=== PATIENT | male | born 1995 | race Caucasian/White ===

== ENCOUNTER 2017-03-15 22:45 | Emergency (ER) | payer OTHER ==
[~2017-03-15 22:45] MED LIST: Z.0.NO CURRENT MEDS
[2017-03-15 22:49] VITALS: BP 115/60; PULSE 103; RESP 16; TEMP 99.2; O2SAT 99
[2017-03-16] MEDS ORDERED: LIDOCAINE 1%/EPINEPHrine 1:100,000 SOLN 20 ML VIAL INFIL ONE (00:15)
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
[2017-03-16 00:57] VITALS: BP 122/63
== END 2017-03-16 00:58 | disposition home or self-care (01) ==
LOC: NEPD 22:45
DX: S41.112A Laceration without foreign body of left upper arm, initial encounter (principal); X99.8XXA Assault by other sharp object, initial encounter; Y93.01 Activity, walking, marching and hiking
CPT/HCPCS: 12005

== ENCOUNTER 2017-07-14 21:18 | Inpatient (IN) | payer OTHER ==
[~2017-07-14] VITALS: Ht 180.3 cm; Wt 69.1 kg
[2017-07-14] MEDS ORDERED: ALUMINUM/MAGNESIUM/SIMETH 30 ML CUP PO PRN (23:45)
[2017-07-14] MEDS ORDERED: MAGNESIUM HYDROXIDE SUSP 30 ML CUP PO PRN (23:45)
[2017-07-14 23:47] VITALS: BP 152/78; PULSE 74; RESP 18; TEMP 98.3
[2017-07-15 06:20] VITALS: BP 148/65; PULSE 73; RESP 18; TEMP 97.1; O2SAT 98
[2017-07-15 07:01] LABS: AUTOMATED NEUTROPHIL # 5.7 TH/MM3 (1.8-7.7); BASOPHIL % 0.6 % (0.0-2.0); EOSINOPHIL # 0.3 TH/MM3 (0-0.4); HEMATOCRIT 45.1 % (39.0-51.0); HEMO FLAGS DIFF FINAL; LYMPH % 20.3 % (9.0-44.0); LYMPHOCYTE # 1.7 TH/MM3 (1.0-4.8); MEAN CELL VOLUME 94.2 FL (80.0-100.0); MEAN CORPUSCULAR HEMOGLOBIN 32.9 PG (27.0-34.0); MONO % 7.3 % (0.0-8.0); NEUT % 67.8 % (16.0-70.0); PLATELET COUNT 227 TH/MM3 (150-450); RED BLOOD COUNT 4.78 MIL/MM3 (4.50-5.90); RED CELL DISTRIBUTION WIDTH 12.5 % (11.6-17.2); WHITE BLOOD COUNT 8.4 TH/MM3 (4.0-11.0)
[2017-07-15 07:37] LABS: ANION GAP 8 MEQ/L (5-15); AST (GOT) 26 U/L (15-37); BICARBONATE 26.5 MEQ/L (21.0-32.0); BLOOD UREA NITROGEN 19 MG/DL (7-18); CHLORIDE 106 MEQ/L (98-107); GLOMERULAR FILTRATION RATE 127 ML/MIN (>89); SODIUM (NA) 140 MEQ/L (136-145)
[2017-07-15 07:42] LABS: ALKALINE PHOSPHATASE 65 U/L (45-117); ALT (GPT) 32 U/L (12-78); HDL CHOLESTEROL 39.7 MG/DL (40.0-60.0); LDL CHOLESTEROL 92 MG/DL (0-99); TOTAL BILIRUBIN ADULT 0.3 MG/DL (0.2-1.0)
[2017-07-15 07:45] LABS: CREATINE KINASE 62 U/L (39-308)
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
[2017-07-15] MEDS: NICOTINE 21 MG/24 HR PATCH T-DERMAL SCH (10:56)
[2017-07-15] MEDS: LISINOPRIL 10 MG TAB PO SCH (10:56)
[2017-07-15] MEDS: buPROPion HCL 75 MG TAB PO ONE ×2 (10:58→11:44)
[2017-07-15 12:14] LABS: HEMOGLOBIN A1a 1.2 %; HEMOGLOBIN A1b 0.7 %; HEMOGLOBIN Ao 84.9 %; HEMOGLOBIN F 1.2 %; HEMOGLOBIN LA1C 2.2 %; HEMOGLOBIN P3 3.8 %
[2017-07-15 18:00] VITALS: BP 150/67; PULSE 66; RESP 18; TEMP 98.1; O2SAT 98
[2017-07-15] MEDS: REMOVE OLD NICOTINE PATCH T-DERMAL SCH (21:00)
[2017-07-16 06:44] VITALS: BP 127/56; PULSE 60; RESP 16; TEMP 97.5; O2SAT 96
[2017-07-16] MEDS: LISINOPRIL 10 MG TAB PO SCH (09:20)
[2017-07-16] MEDS: buPROPion HCL 150 MG SUSTAINED RELEASE TAB PO SCH (09:21)
[2017-07-16] MEDS: NICOTINE 21 MG/24 HR PATCH T-DERMAL SCH (09:21)
--- NOTE | 2017-07-16 13:27 | HHI.PYPN ---
Subjective Chief Complaint: recent suicide attempt via overdose Remarks Patient seen for follow-up, chart reviewed. Discussion with nursing staff reported that patient has been cooperative and compliant with treatment. Patient found sitting in hospital bed eating breakfast was able to interview with check writer salesperson and nurse today. Patient states that he has been feeling "good", reports having gone to groups yesterday stated that he usually is not an indoor person and would like to continue to participate in activities. Patient states having slept well last night, his mood at this time is good stating that this happy yesterday after be visited by his mother who told him that his name was cleared from the alleged rumor. Patient states that his depressions still present although it's better today especially after hearing this news yesterday. Patient this time denies any suicidal ideations. Mental Status Examination Appearance: Appropriate Consciousness: Alert Orientation: Person, Place, Date/Time Motor Activity: Normal gait Speech: Unremarkable Language: Adequate Fund of Knowledge: Inadequate Attention and Concentration: Adequate Memory: Impaired Mood: Sad Affect: Sad Thought Process & Associations: Logical, Linear Thought Content: Appropriate Hallucination Type: None Delusion Type: None Suicidal Ideation: Yes (denies today) Suicidal Plan: Yes Suicidal Intention: Yes Homicidal Ideation: No Homicidal Plan: No Homicidal Intention: No Insight: Fair Judgment: Impulsive Results Vitals/IOs Vital Signs Date Time Temp Pulse Resp B/P (MAP) Pulse Ox O2 Delivery O2 Flow Rate FiO2 07/16/17 06:44 97.5 60 16 127/56 (79) 96 Intake and Output 07/16/17 07/16/17 07/17/17 08:00 16:00 00:00 Intake Total 480 ml 360 ml Balance 480 ml 360 ml Assessment & Plan Problem List: (1) Adjustment disorder with depressed mood ICD Codes: F43.21 - Adjustment disorder with depressed mood Assessment & Plan Patient at this time continues to have depressed mood although her denying any suicidal ideations. Patient continues to be noted to be dysphoric, poor eye contact, but is compliant with treatment and is attempting to attend and participate in groups and activities. Patient appears motivated for improvement but continues to feel depressed due to his current circumstances. Patient had increase in Wellbutrin to 150 mg by mouth daily today and will continue this dose for now and monitor improvement of depressive symptoms. Continue to encourage patient to maintain personal hygiene is patient noted to be slightly malodorous and disheveled. Continue to encourage patient to participate in groups and activities. Discharge planning in progress Justification for Cont. Inpt. At risk for further decompensation if at lower level of care Discharge Planning Patient possibly able to return to mother's residence once psychiatrically stable Jordy Bazzi MD Jul 16, 2017 13:27
--- NOTE | 2017-07-16 14:47 | HHI.PR ---
Subjective Remarks Nursing denies any deterioration since last night. Stable blood pressures. Patient self denies any chest pain nausea vomiting. Objective Vital Signs Date Time Temp Pulse Resp B/P (MAP) Pulse Ox O2 Delivery O2 Flow Rate FiO2 07/16/17 06:44 97.5 60 16 127/56 (79) 96 07/15/17 18:00 98.1 66 18 150/67 (94) 98 I/O 07/15/17 07/15/17 07/15/17 07/16/17 07/16/17 07/16/17 07:00 15:00 23:00 07:00 15:00 23:00 Intake Total 240 ml 480 ml 1680 ml 720 ml 600 ml Balance 240 ml 480 ml 1680 ml 720 ml 600 ml Intake Oral 240 ml 480 ml 1680 ml 720 ml 600 ml # Voids 1 1 2 Result Diagram: 07/15/17 0630 07/15/17 0630 Objective Remarks Heart sounds regular rhythm, no murmurs Alert oriented, sitting up in chair, no acute distress, affect appears appropriate with a normal to pleasant mood. A/P Assessment and Plan Recent overdose - awaiting from outside medical records for ultimate discharge summary from most recent facility. Clinically stable. No further lab work at this time. Clinically the patient has fully recovered from his overdose whether it was Benadryl or Unisom or Tylenol. HTN - controlled, continue lisinopril Suicidal ideation - psychiatry managing Adair Raya MD Jul 16, 2017 14:47
[2017-07-16 18:03] VITALS: BP 123/57; PULSE 90; RESP 17; TEMP 97.6; O2SAT 97
[2017-07-16] MEDS: REMOVE OLD NICOTINE PATCH T-DERMAL SCH (20:53)
[2017-07-17 05:38] VITALS: BP 108/68; PULSE 83; RESP 17; TEMP 98; O2SAT 99
[2017-07-17] MEDS: LISINOPRIL 10 MG TAB PO SCH (08:28)
[2017-07-17] MEDS: buPROPion HCL 150 MG SUSTAINED RELEASE TAB PO SCH (08:28)
[2017-07-17] MEDS: NICOTINE 21 MG/24 HR PATCH T-DERMAL SCH (08:29)
--- NOTE | 2017-07-17 10:17 | HHI.PYPN ---
Subjective Chief Complaint: recent suicide attempt via overdose Remarks Patient seen for follow-up, chart review. Discussion with nursing staff reported patient has been compliant with medications with no behavioral issues. Patient found sitting in hospital bed noted to have taken a shower and clean- shaven, calm and cooperative interview. Patient states that he been feeling "good", reports having had a friend come visit him and felt that it went well. Patient states that he sleeping better, mood has been improving, states feeling less depressed today and more hopeful. Patient states that upon discharge plans to stay with his mother as well as look for employee. Patient this time denies any suicidal ideations, perceptual disturbances or delusions. Review of Systems Except as stated in HPI: all other systems reviewed are Neg Mental Status Examination Appearance: Appropriate Consciousness: Alert Orientation: Person, Place, Date/Time Motor Activity: Normal gait Speech: Unremarkable Language: Adequate Fund of Knowledge: Inadequate Attention and Concentration: Adequate Memory: Impaired Mood: Sad (less so today) Affect: Sad (less so today) Thought Process & Associations: Logical, Linear Thought Content: Appropriate Hallucination Type: None Delusion Type: None Suicidal Ideation: Yes (denies today) Suicidal Plan: No Suicidal Intention: No Homicidal Ideation: No Homicidal Plan: No Homicidal Intention: No Insight: Fair Judgment: Impulsive Results Vitals/IOs Vital Signs Date Time Temp Pulse Resp B/P (MAP) Pulse Ox O2 Delivery O2 Flow Rate FiO2 07/17/17 05:38 98.0 83 17 108/68 (81) 99 Intake and Output 07/17/17 07/17/17 07/18/17 08:00 16:00 00:00 Intake Total 480 ml Balance 480 ml Assessment & Plan Problem List: (1) Adjustment disorder with depressed mood ICD Codes: F43.21 - Adjustment disorder with depressed mood Assessment & Plan Patient at this time noted to have some improvement with depressed mood, noted to be more reactive with affect today with better eye contact although continues to appear dysphoric but less so today. Patient denies any suicidal ideations at this time. Patient appears to be responding to current treatment, we'll continue treatment for now. Possible discharge tomorrow if patient continues to improve. Collateral pending from mother to involve her in his discharge planning. Continue to monitor mood and behavior. Discharge planning in progress Justification for Cont. Inpt. At risk for further decompensation if at lower level of care Discharge Planning Patient to return back to mother's residence once psychiatrically stable. Jordy Bazzi MD Jul 17, 2017 10:17
--- NOTE | 2017-07-17 14:50 | HHI.PR ---
Subjective Remarks Nursing denies any deterioration since last night. Stable blood pressures. Patient self denies any chest pain nausea vomiting. Denies any difficulty breathing or fevers Objective Vital Signs Date Time Temp Pulse Resp B/P (MAP) Pulse Ox O2 Delivery O2 Flow Rate FiO2 07/17/17 05:38 98.0 83 17 108/68 (81) 99 07/16/17 18:03 97.6 90 17 123/57 (79) 97 I/O 07/16/17 07/16/17 07/16/17 07/17/17 07/17/17 07/17/17 07:00 15:00 23:00 07:00 15:00 23:00 Intake Total 720 ml 600 ml 1320 ml 720 ml 720 ml Balance 720 ml 600 ml 1320 ml 720 ml 720 ml Intake Oral 720 ml 600 ml 1320 ml 720 ml 720 ml # Voids 2 2 Result Diagram: 07/15/17 0630 07/15/17 0630 Objective Remarks Heart sounds regular rhythm, no murmurs Alert oriented, sitting up in chair, no acute distress, affect appears appropriate with a normal to pleasant mood. Unlabored breathing, clear lungs anteriorly and posteriorly, with good aeration A/P Assessment and Plan Recent overdose - awaiting from [facility] outside records have actually come in , what is new to me is a medication list that actually lists antibiotics that the patient was supposed to have continued on 07/15, namely vancomycin and Zosyn for presumed aspiration pneumonia . Since the patient has been admitted here at [place] he has been afebrile with no respiratory symptoms. At most he probably got 5 days worth of antibiotics at the original medical facility where he was initially managed for his overdose. Given that he has been clinically asymptomatic with no recurrence of fevers with no imaging studies from the outside indicating an acute infectious pulmonary process, I will hold off on antibiotics and simply obtain a pro-calcitonin level and see what is elevated. If it is within normal limits will hold off on continuing antibiotics, a slightly elevated will continue with something orally. HTN - controlled, continue lisinopril Suicidal ideation - psychiatry managing Adair Raya MD Jul 17, 2017 14:50
[2017-07-17 16:30] VITALS: BP 108/64; PULSE 68; RESP 17; TEMP 97.6; O2SAT 97
[2017-07-17] MEDS: REMOVE OLD NICOTINE PATCH T-DERMAL SCH (21:00)
[2017-07-18 05:41] VITALS: BP 117/55; PULSE 83; RESP 18; TEMP 98.7; O2SAT 99
[2017-07-18] MEDS: LISINOPRIL 10 MG TAB PO SCH (09:00)
[2017-07-18] MEDS: buPROPion HCL 150 MG SUSTAINED RELEASE TAB PO SCH (09:00)
[2017-07-18] MEDS: NICOTINE 21 MG/24 HR PATCH T-DERMAL SCH (09:00)
[2017-07-18] MEDS ORDERED: LISI10TA3 PO (12:18)
[2017-07-18] MEDS ORDERED: BUPR150XL PO (12:18)
--- NOTE | 2017-07-18 14:25 | HHI.PR ---
Subjective Remarks RN denies any deterioration since last night. Patient self denies any chest pain nausea vomiting. No difficulty breathing. Objective Vital Signs Date Time Temp Pulse Resp B/P (MAP) Pulse Ox O2 Delivery O2 Flow Rate FiO2 07/18/17 05:41 98.7 83 18 117/55 (75) 99 07/17/17 16:30 97.6 68 17 108/64 (79) 97 I/O 07/17/17 07/17/17 07/17/17 07/18/17 07/18/17 07/18/17 07:00 15:00 23:00 07:00 15:00 23:00 Intake Total 720 ml 720 ml 150 ml Balance 720 ml 720 ml 150 ml Intake Oral 720 ml 720 ml 150 ml # Voids 2 Result Diagram: 07/15/1730 07/15/17 0630 Objective Remarks Heart sounds regular rhythm, no murmurs lungs CTA x 2, unlabored A/P Assessment and Plan Recent overdose at original outside facility - then transferred to [facility] in stable condition. Per their discharge med rec which came in later, patient was supposed to be on vancomycin and Zosyn. However he was clinically asymptomatic and by the time I had been made aware of the incoming med reconciliation document, he had already been at least 36 hours where he was clinically asymptomatic with no fevers and no cough. Pro-calcitonin was obtained which is within normal limits. Therefore I will not start antibiotics. HTN - controlled, continue lisinopril Suicidal ideation - psychiatry managing tobacco use - nicotine Adair Raya MD Jul 18, 2017 14:24
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
== END 2017-07-18 16:10 | disposition home or self-care (01) | DRG 881 ==
LOC: H4EA 23:20 → H250 07-17 14:15
PROVIDERS: ADMIT Student in an Organized Health Care Education/Training Program; ATTEND Student in an Organized Health Care Education/Training Program
DX: F43.21 Adjustment disorder with depressed mood (principal); I10 Essential (primary) hypertension; Z72.0 Tobacco use; Z91.5 Personal history of self-harm
CPT/HCPCS: 80053; 80061; 82550; 83036; 84145; 85025